=== PATIENT | female | born 1935 | race Caucasian/White ===

== ENCOUNTER 2018-10-27 23:03 | Emergency (ER) | payer OTHER, BC ==
[2018-10-27 23:30] VITALS: TEMP 98.2; BMI 27.3
--- NOTE | 2018-10-27 23:37 | PDOC ---
History of Present Illness - General Chief Complaint: Lightheaded Stated Complaint: DIZZINESS, ELEVATED BP Time Seen by Provider: 10/27/18 23:30 - History of Present Illness Initial Comments: 10/27/18 23:32 83 yo F with h/o HTN, HLD, COPD, pancreatitis, Anxiety, GERD, who p/w dizziness. Patient endorses acute onset of "spinning sensation," of room in right clockwise fashion beginning at 1000 M these evening. Onset of dizziness following bending over "picking clothes out of hot dryer machine." Patient states that spinning present at rest, worse with movement of head, and lasting for 30 minutes. Asx. w/ 2 episodes of NBNB emesis, 1 non bloody, non-mucoid BM. Denies h/o similar symptoms. Now with persistent epigastria discomfort, typical of patient prior GERD symptoms. Patient denies BALDERAS, vision change, palpitations, cough, wheezing, orthopnea, PND , leg swelling/pain, N/V, F,C, CP, SOB, urinary complaints, hematuria, BPR, abdominal pain, diarrhea, constipation, lightheadedness, weakness, sensory changes. PMHx: as noted above. Denies h/o ACS/NH, stent placement, CABG, TIA/CVA ROS: as noted SHx: Denies Allergies: NKDA Past History - Past Medical History Allergies/Adverse Reactions: Allergies Allergy/AdvReac Type Severity Reaction Status Date / Time No Known Drug Allergies Allergy Verified 10/27/18 23:30 Home Medications: Ambulatory Orders Zolpidem Tartrate [Ambien Cr] 12.5 mg PO HS 01/14/16 Amlodipine Besylate [Norvasc -] 10 mg PO DAILY #30 tablet 01/22/16 Alprazolam [Xanax] 0.5 mg PO HS 05/10/16 Atorvastatin Ca [Lipitor] 20 mg PO HS 05/10/16 Glucosa Huntley 2Kcl/Chondroitin Huntley [Glucosamine & Chondroitin Cap] 1 each PO BID 12/19 Vit A/Vit C/Vit E/Zinc/Copper [Preservision Areds Tablet] 1 each PO BID Wheat Dextrin [Benefiber] 1 pack PO BID 05/10/16 Biotin 10,000 mcg PO DAILY 06/12/16 Docusate Sodium [Colace -] 300 mg PO HS 06/12/16 Fluticasone Prop 0.05% Nasal [Flonase -] 1 - 2 spray NS DAILY 06/12/16 Acetaminophen [Tylenol .Regular Strength -] 1,000 mg PO Q4H PRN 06/23/16 Esomeprazole Magnesium [Nexium 24Hr] 20 mg PO DAILY 06/23/16 Ibuprofen [Advil -] 400 mg PO PRN PRN 06/23/16 Mag Carb/Aluminum Hydrox/Algin [Gaviscon Liquid] 355 ml PO PRN PRN 06/23/16 Polyethylene Glycol 3350 [Miralax 255 gm Btl] 17 gm PO DAILY #1 bottle 06/23/16 Anemia: Yes Asthma: No 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) CVA: No COPD: (LUNG MASS) CHF: No Dementia: No Diabetes: No GI Disorders: Yes (GERD) Disorders: No HTN: Yes Hypercholesterolemia: Yes Liver Disease: No Seizures: No Thyroid Disease: Yes (ABOUT 30YRS OLD) - Surgical History Abdominal Surgery: No Appendectomy: No Cardiac Surgery: No Cholecystectomy: Yes Lung Surgery: No Neurologic Surgery: No Orthopedic Surgery: Yes (CLAVICLE BONE LEFT) - Suicide/Smoking/Psychosocial Hx Smoking History: Never smoked Have you smoked in the past 12 months: No Number of Cigarettes Smoked Daily: 20 Cigars Per Day: 20 Information on smoking cessation initiated: No 'Breaking Loose' booklet given: 05/11/16 Hx Alcohol Use: No Drug/Substance Use Hx: No Substance Use Type: None Hx Substance Use Treatment: No Review of Systems - Review of Systems Comments:: 10/27/18 23:36 GENERAL/CONSTITUTIONAL: No fever or chills. No weakness. HEAD, EYES, EARS, NOSE AND THROAT: No change in vision. No ear pain or discharge. No sore throat. CARDIOVASCULAR: No chest pain or shortness of breath RESPIRATORY: No cough, wheezing, or hemoptysis. GASTROINTESTINAL: No nausea, vomiting, diarrhea or constipation. GENITOURINARY: No dysuria, frequency, or change in urination. MUSCULOSKELETAL: No joint or muscle swelling or pain. No neck or back pain. SKIN: No rash NEUROLOGIC: + Dizziness. No headache, vertigo, loss of consciousness, or change in strength/sensation. ENDOCRINE: No increased thirst. No abnormal weight change HEMATOLOGIC/LYMPHATIC: No anemia, easy bleeding, or history of blood clots. ALLERGIC/IMMUNOLOGIC: No hives or skin allergy. *Physical Exam - Vital Signs Last Vital Signs Temp Pulse Resp BP Pulse Ox 98.2 F 82 19 175/89 H 97 10/27/18 23:03 10/27/18 23:03 10/27/18 23:03 10/27/18 23:03 10/27/18 23:03 - Physical Exam Comments: 10/27/18 23:36 GENERAL: Awake, alert, and fully oriented, in no acute distress HEAD: No signs of trauma, normocephalic, atraumatic EYES: PERRLA, EOMI, sclera anicteric, conjunctiva clear ENT: Auricles normal inspection, hearing grossly normal, nares patent, oropharynx clear without exudates. Moist mucosa NECK: Normal ROM, supple, no lymphadenopathy, JVD, or masses LUNGS: No distress, speaks full sentences, clear to auscultation bilaterally HEART: Regular rate and rhythm, normal S1 and S2, no murmurs, rubs or gallops, peripheral pulses normal and equal bilaterally. ABDOMEN: Soft, nontender, normoactive bowel sounds. No guarding, no rebound. No masses EXTREMITIES : Normal inspection, Normal range of motion, no edema. No clubbing or cyanosis. NEUROLOGICAL: Absent nystagmus. Cranial nerves II through XII grossly intact. Normal speech, normal gait, no focal sensorimotor deficits SKIN: Warm, Dry, normal turgor, no rashes or lesions noted Moderate Sedation - Procedure Monitoring Vital Signs: Procedure Monitoring Vital Signs Temperature 98.2 F 10/27/18 23:03 Pulse Rate 82 10/27/18 23:03 Respiratory Rate 19 10/27/18 23:03 Blood Pressure 175/89 H 10/27/18 23:03 O2 Sat by Pulse Oximetry (%) 97 10/27/18 23:03 ED Treatment Course - LABORATORY CBC & Chemistry Diagram: 10/28/18 00:15 10/28/18 00:15 - ADDITIONAL ORDERS Additional order review: 10/28/18 01:55 Patient Information: : 1935 Order Type: Preliminary Name: MELISSA BALBUENA Sex: F Study Description: CT HEAD Modality: CT Location: [facility] Referring Physician: KENYA SCHILLING Comments: Norbert Garay MD wrote on Oct 28, 2018 at 01:28 AM: Referring Physician: KENYA SCHILLING Patient Name: ESHA TORRES THIS IS A PRELIMINARY REPORT FROM [facility] DATE OF SERVICE: 2018-10-28 01:07:25 IMAGES: 174 EXAM: HEAD CT WITHOUT CONTRAST HISTORY: Syncope COMPARISON: None. FINDINGS: Involutional changes. Chronic microvascular changes. No hemorrhage. No mass. No obvious infarct. Osseous structures are intact. CONFIDENTIALITY NOTICE: This information is intended only for the use of the recipient(s) named above. If you are not the intended recipient, or a person responsible for delivering it to the intended recipient, you are hereby notified that any disclosure, copying, distribution or use of any of the information contained in or attached to this transmission is STRICTLY PROHIBITED. If you have received this transmission in error, please immediately notify [facility] Director and destroy the original transmission and its attachments without saving them in any manner [address] [place] [address] [facility] [employer] [address] [place] [address] Phone: [phone] ([phone]) Fax: Email: [email or web address]: [email or web address] Patient Information: : 1935 Order Type: Preliminary Name: MELISSA BALBUENA Sex: F Study Description: CT HEAD Modality: CT Location: [facility] Referring Physician: KENYA SCHILLING Impression: Involutional and chronic microvascular changes. No other abnormalities are identified. One or more of the following dose reduction techniques were used: automated exposure control, adjustment of the mA and/or kV according to patient size, use of iterative reconstructive technique. THIS DOCUMENT HAS BEEN ELECTRONICALLY SIGNED Norbert Garay MD 10/28/2018 01:28 ANTHONY Guerra Please call [facility]isting Program Director [phone]) with questions. Norbert aGray MD Clinicians - Please contact [facility]isting Program Director with further questions at Medical Decision Making - Medical Decision Making 10/27/18 23:36 83 yo F with h/o HTN, HLD, COPD, pancreatitis, Anxiety, GERD, who p/w dizziness. BP 175/89, vitals otherwise wnl, AF, A&Ox3. Absent focal neuro deficits on physical exam. Will assess for VBI/TIA, cardiac dysarrythmias, hypoglycemia, electrolyte abnml, metabolic and toxic derangements, acid-base disturbances, infection. Denies ED Course: 10/28/18 01:43 Laboratory Tests 10/28/18 10/28/18 10/28/18 00:15 00:15 00:15 WBC 7.7 Hgb 12.2 Hct 35.5 Plt Count 353 BUN 25 H Creatinine 0.8 Troponin I < 0.02 CTH: Chronic microvascular changes. Stable for d/c with return precautions. 10/28/18 01:55 Discussed patient risk of central vertigo, patient expresses understanding and requests dispo home. 10/28/18 02:41 Pt. persistently HTN with BP 198/112. Patient refuses admission and expresses understanding of risk/benefit of signing AMA. *DC/Admit/Observation/Transfer Diagnosis at time of Disposition: Vertigo - Discharge Dispostion Disposition: AGAINST MEDICAL ADVICE - Referrals - Patient Instructions Printed Discharge Instructions: DI for Vertigo Additional Instructions: As discussed you may have undiagnosed illness or medical diagnosis that if left untreated can lead to multiple complications including, but not limited to permanent disability and . Should you reconsider you should turn to the emergency department for evaluation. Please return to the emergency department with any new or worsening symptoms or concerns. Please follow up with your primary care physician within 72 hours. - Post Discharge Activity - Attestations Physician Attestion: 10/27/18 23:36 I attest to the information provided in this note.
[2018-10-28] MEDS ORDERED: SODIUM CHLORIDE 1,000 ML IV STA (00:03)
[2018-10-28] MEDS ORDERED: FAMOTIDINE 20 MG/50 ML IVPB 20 MG/50 ML MG IVPB ONE ×2 (00:03→00:11)
[2018-10-28] MEDS ORDERED: ONDANSETRON 4 MG/2 ML VIAL IVPUSH ONE (00:03)
[2018-10-28] MEDS ORDERED: ONDANSETRON 4 MG/2 ML VIAL ONE (00:10)
[2018-10-28 00:53] LABS: INR 0.92 (0.83-1.09); PROTHROMBIN TIME (PATIENT) 10.8 SEC (9.7-13.0)
[2018-10-28 01:08] LABS: ALBUMIN 3.4 g/dl (3.4-5.0); ALK PHOS 159 U/L (45-117); ANION GAP 5 MMOL/L (8-16); BILIRUBIN,TOTAL 0.2 mg/dL (0.2-1); BLOOD UREA NITROGEN 25 mg/dL (7-18); CALCIUM 8.5 mg/dL (8.5-10.1); CHLORIDE 110 mmol/L (98-107); CO2 26 mmol/L (21-32); CREATININE 0.8 mg/dL (0.55-1.3); GLUCOSE,RANDOM 108 mg/dL (74-106); POTASSIUM 4.1 mmol/L (3.5-5.1); SGOT/AST 16 U/L (15-37); SGPT/ALT 14 U/L (13-61); SODIUM 141 mmol/L (136-145); TOT PROT 6.7 g/dl (6.4-8.2)
[2018-10-28 01:29] LABS: BASO % 1.1 % (0-2.0); EOS % 2.4 % (0-4.5); HEMATOCRIT 35.5 % (32.4-45.2); HEMOGLOBIN 12.2 GM/dL (10.7-15.3); LYMPH % 13.8 % (8-40); MCH 31.4 pg (25.7-33.7); MCHC 34.4 g/dl (32.0-36.0); MEAN CELL VOLUME 91.1 fl (80-96); MEAN PLT VOLUME 8.6 fl (7.5-11.1); MONO % 10.3 % (3.8-10.2); NEUT % 72.4 % (42.8-82.8); PLATELET COUNT 353 K/MM3 (134-434); RDW 15.5 % (11.6-15.6); WHITE BLOOD COUNT 7.7 K/mm3 (4.0-10.0)
--- NOTE | 2018-10-28 02:01 | PDOC ---
Attending Attestation - Resident Resident Name: Tate Cadena - ED Attending Attestation I have performed the following: I have examined & evaluated the patient, The case was reviewed & discussed with the resident, I agree w/resident's findings & plan, Exceptions are as noted - HPI HPI: 10/28/18 01:52 The patient is a 83 year old female, with a significant past medical history of HTN, HLD, COPD, pancreatitis, anxiety, and GERD, who presents to the emergency department with sudden onset room spinning dizziness. As per patient, she was taking socks out of the back of the dryer when she got up and began to feel the room was spinning "in big circles." She states the dryer is very low to the ground. Pt reports associated 1 episode of emesis, mild shortness of breath, and 1 bowel movement lasting a total of 20 minutes. SHe reports the dizziness would improve when she put her head down and recur when she looked up. She states the symptoms resolved on their own after about 20 mins. While in the ED, patient notes her symptoms have since resolved. Denies associated headache, focal weakness or numbness at any point. No hx similar sxs. She denies any alleviating factors. She denies any chest pain, palpitations, or vision changes. She denies recent fevers, chills, or headache. She denies recent dysuria, frequency, urgency or hematuria. Allergies: NKDA - Physicial Exam PE: 10/28/18 02:01 GENERAL: Awake, alert, and fully oriented, in no acute distress. Very comfortable appearing. EYES: PERRLA, EOMI, sclera anicteric, conjunctiva clear. No nystagmus. ENT: Auricles normal inspection, hearing grossly normal, nares patent, oropharynx clear without exudates. Moist mucosa NECK: Normal ROM, supple, no lymphadenopathy, JVD, or masses LUNGS: Breath sounds equal, clear to auscultation bilaterally. No wheezes, and no crackles HEART: Regular rate and rhythm, normal S1 and S2, no murmurs, rubs or gallops ABDOMEN: Soft, nontender, normoactive bowel sounds. No guarding, no rebound. No masses EXTREMITIES: Normal range of motion, no edema. No cords, erythema, or tenderness NEUROLOGICAL: Normal speech, cranial nerves intact, negative pronator drift, 5/ 5 strength in all 4 extremities, normal sensation to light touch in all 4 extremities, normal cerebellar exam, normal gait, normal tone SKIN: Warm, Dry, normal turgor, no rashes or lesions noted. - Medical Decision Making 10/28/18 02:19 83yo F hx HTN, HL presents to the ED with resolved vertigo. No associated headache, neuro deficits In ED, initial vitals with elevated bp, pt asymptomatic Given age, some risk factors, labs and CTH were obtained with no acute findings. Pt had no sxs during 3 hour stay here. Sxs most likely consistent with peripheral vertigo as they began after she stood up after leaning over in dryer, however we can not rule out central etiology w/o full stroke w/u In light of this, pt was offered observation for neuro w/u, MRI/MRA however she does not want to stay in the hospital and will leave AMA She expresses understanding that there is a possibility that this could be a stroke and states she will return immediately if any sxs recur The patient is clinically sober, free from distracting injury, appears to have intact insight and judgment and reason and in my opinion has the capacity to make decisions. The patient presents with vertigo. I have explained that I am concerned that this may represent a stroke; she has verbalized an understanding of my concerns. I have told the patient that while her CTH was normal, she could still have a stroke. I have discussed the need for MRI/MRI to get more information about potential causes of the patients vertigo. I have told the patient that if she leaves and has recurrent vertigo, she could get much worse, could become critically ill, and could possibly become disabled or . I have asked her to stay in the hospital for serial neuro exams. I have discussed these concerns with the patients daughter who is at the bedside and she is unable to convince her to stay for further evaluation. The patient is not willing to undergo an MRI/MRA. She is unwilling to stay overnight for monitoring. She is refusing any further care and is leaving against medical advice. I am unable to convince the patient to stay, I have asked her to return as soon as possible to complete their evaluation. I have answered all their questions.
[2018-10-28 02:29] VITALS: BP 198/112; PULSE 86
--- NOTE | 2018-10-28 10:10 | EKG ---
Test Reason : Blood Pressure : / mmHG Vent. Rate : 076 BPM Atrial Rate : 076 BPM P-R Int : 158 ms QRS Dur : 126 ms QT Int : 418 ms P-R-T Axes : 058 -47 017 degrees QTc Int : 470 ms NORMAL SINUS RHYTHM RIGHT BUNDLE BRANCH BLOCK LEFT ANTERIOR FASCICULAR BLOCK BIFASCICULAR BLOCK ABNORMAL ECG WHEN COMPARED WITH ECG OF 14-JAN-2016 12:26, NO SIGNIFICANT CHANGE WAS FOUND Confirmed by KRISTA WATSON MD ([id number]) on 10/28/2018 10:10:01 AM Referred By: Confirmed By:KRISTA WATSON MD
== END 2018-10-28 03:17 | disposition left against medical advice (07) ==
LOC: JER 23:03
PROC: 3E033GC Introduction of Other Therapeutic Substance into Peripheral Vein, Percutaneous Approach (ICD-10-PCS; principal; 2018-10-27)
PROC: 3E033GC Introduction of Other Therapeutic Substance into Peripheral Vein, Percutaneous Approach (ICD-10-PCS; 2018-10-27)
DX: I10 Essential (primary) hypertension (principal); H81.399 Other peripheral vertigo, unspecified ear; I25.10 Atherosclerotic heart disease of native coronary artery without angina pectoris; Z95.1 Presence of aortocoronary bypass graft; Z95.5 Presence of coronary angioplasty implant and graft; E78.5 Hyperlipidemia, unspecified; J44.9 Chronic obstructive pulmonary disease, unspecified; Z86.73 Personal history of transient ischemic attack (TIA), and cerebral infarction without residual deficits
CPT/HCPCS: 36415; 70450-TC; 80053; 82550; 84484; 85025; 85610; 93005; 93010; 96365; 96375; 99282-25; J7030

== ENCOUNTER 2019-02-12 11:42 | Day surgery (SDC) | payer OTHER, BC ==
[2019-02-11 16:01] VITALS: BMI 26.7
[~2019-02-12 11:42] MED LIST: ACETAMINOPHEN 325 MG TABLET (FP) PO PRN; BUPIVACAINE HCL/PF 0.75% 10 ML VIAL NR ONE; CYCLOPENTOLATE HCL 1% OPHTH SOLN 2 ML BOTTLE OP SCH; KETOROLAC TROMETHAMINE 0.5% EYE DROP 1 DROP DROPS OP SCH; OFLOXACIN 0.3% OPHTHALMIC SOLUTION 5 ML BOTTLE OP SCH; PHENYLEPHRINE 2.5% OPHTH SOLN 15 ML BOTTLE OP SCH; TROPICAMIDE 1% OPHTH SOLN 15 ML BOTTLE OP SCH
[2019-02-12] MEDS ORDERED: OFLOXACIN 0.3% OPHTHALMIC SOLUTION 5 ML BOTTLE ONE (11:54)
[2019-02-12] MEDS ORDERED: PHENYLEPHRINE 2.5% OPHTH SOLN 15 ML BOTTLE ONE (11:54)
[2019-02-12] MEDS ORDERED: CYCLOPENTOLATE HCL 1% OPHTH SOLN 2 ML BOTTLE ONE (11:54)
[2019-02-12] MEDS ORDERED: KETOROLAC TROMETHAMINE 0.5% EYE DROP 1 DROP DROPS ONE (11:55)
[2019-02-12] MEDS ORDERED: TROPICAMIDE 1% OPHTH SOLN 15 ML BOTTLE ONE (11:55)
[2019-02-12] MEDS ORDERED: KETOROLAC TROMETHAMINE 0.5% EYE DROP 1 DROP DROPS OD ONE ×3 (12:00→12:10)
[2019-02-12] MEDS ORDERED: PHENYLEPHRINE 2.5% OPHTH SOLN 15 ML BOTTLE OD ONE ×3 (12:00→12:10)
[2019-02-12] MEDS ORDERED: CYCLOPENTOLATE HCL 1% OPHTH SOLN 2 ML BOTTLE OD ONE ×3 (12:00→12:10)
[2019-02-12] MEDS ORDERED: OFLOXACIN 0.3% OPHTHALMIC SOLUTION 5 ML BOTTLE OD ONE ×3 (12:00→12:10)
[2019-02-12] MEDS ORDERED: TROPICAMIDE 1% OPHTH SOLN 15 ML BOTTLE OD ONE ×3 (12:00→12:10)
[2019-02-12] MEDS ORDERED: LIDOCAINE HCL/PF 2% SDV 5ML VIAL ONE (12:50)
[2019-02-12] MEDS ORDERED: PROPOFOL 20 ML ONE ×2 (13:13)
[2019-02-12] MEDS ORDERED: LIDOCAINE HCL/PF 2% SDV 5ML VIAL INF ONE (13:20)
[2019-02-12] MEDS ORDERED: POVIDONE-IODINE 5% OPHTHALMIC PREP 30 ML SOLUTION OD ONE (13:23)
[2019-02-12] MEDS ORDERED: BSS (NA/CA/MG/K) BALANCED SALT SOLUTION OPHTH SOLN 15 ML BOTTLE OD ONE (13:31)
[2019-02-12] MEDS ORDERED: CHONDROITIN SU A/HYALUR SOD 1 KIT IO ONE (13:31)
[2019-02-12] MEDS ORDERED: LIDOCAINE HCL 1% PRESERVATIVE FREE - 30ML VIAL IO ONE (13:31)
[2019-02-12] MEDS ORDERED: EPINEPHrine/PF 1 MG/1 ML (1:1,000) AMPULE SQ ONE (13:36)
[2019-02-12 14:49] VITALS: PULSE 76; TEMP 97.5
[2019-02-12 14:55] VITALS: BP 135/68
--- NOTE | 2019-02-12 19:33 | SPEC ---
DATE OF OPERATION: 02/12/2019 OPERATION: Phacoemulsification with posterior chamber intraocular lens implantation, right eye, lens used [id number], 22.0 Diopter power, Serial No. [id number]. PREOPERATIVE DIAGNOSIS: Cataract, right eye. POSTOPERATIVE DIAGNOSIS: Cataract, right eye. SURGEON: Michael Ortiz M.D. ANESTHESIA: Peribulbar/Modified Van Lint/MAC. COMPLICATIONS: None. PROCEDURE: The patient was brought to the operating room and correctly identified along with the operative site and a correct intraocular lens winkler. The patient was then given a peribulbar block under sedation with 5 mL of a 1:1 mixture of 2% Lidocaine and 0.5% Bupivacaine. Two to 3 mL of the same mixture was given as a modified Van Lint block. The eye was then prepped and draped in the usual sterile fashion including 5% Betadine solution in the conjunctival sac and an eyelid drape. An eyelid speculum was then placed into the eye. A paracentesis port was created. Viscoelastic was injected to inflate the anterior chamber. A temporal clear corneal wound was created. A continuous circular capsulorrhexis was performed. The nucleus was then hydro-dissected and removed phacoemulsification via the [id number] approach. The remaining cortical material was irrigated and aspirated from the eye. Viscoelastic was injected to inflate the capsular bag. The lens was injected into the capsular bag. Viscoelastic was then irrigated and aspirated from the eye. The intraocular lens was noted to be well centered and covered by the anterior capsular border. All wounds were found to be watertight. Topical Vancomycin was given. The eye patch and shield were placed. The patient was discharged from the operating room in stable condition. Mari ISRAEL/[id number]
== END 2019-02-12 14:50 | disposition home or self-care (01) ==
LOC: JASU-SURG 11:42
PROVIDERS: ATTEND Ophthalmology
PROC: 08RJ3JZ Replacement of Right Lens with Synthetic Substitute, Percutaneous Approach (ICD-10-PCS; principal; 2019-02-12 13:00)
DX: H26.9 Unspecified cataract (principal); I10 Essential (primary) hypertension; J44.9 Chronic obstructive pulmonary disease, unspecified; K21.9 Gastro-esophageal reflux disease without esophagitis

== ENCOUNTER 2019-05-07 09:55 | Day surgery (SDC) | payer OTHER, BC ==
[2019-05-05 15:46] VITALS: BMI 26.7
[~2019-05-07 09:55] MED LIST changes: -BUPIVACAINE HCL/PF 0.75% 10 ML VIAL NR ONE; +BUPIVACAINE HCL/PF 0.75% 10 ML VIAL RB ONE; -CYCLOPENTOLATE HCL 1% OPHTH SOLN 2 ML BOTTLE OP SCH; -KETOROLAC TROMETHAMINE 0.5% EYE DROP 1 DROP DROPS OP SCH; +LIDOCAINE HCL/PF 2% SDV 5ML VIAL PNB ONE; -OFLOXACIN 0.3% OPHTHALMIC SOLUTION 5 ML BOTTLE OP SCH; -PHENYLEPHRINE 2.5% OPHTH SOLN 15 ML BOTTLE OP SCH; -TROPICAMIDE 1% OPHTH SOLN 15 ML BOTTLE OP SCH
[2019-05-07] MEDS ORDERED: CYCLOPENTOLATE HCL 1% OPHTH SOLN 2 ML BOTTLE ONE (10:15)
[2019-05-07] MEDS ORDERED: KETOROLAC TROMETHAMINE 0.5% EYE DROP 1 DROP DROPS ONE (10:15)
[2019-05-07] MEDS ORDERED: PHENYLEPHRINE 2.5% OPHTH SOLN 15 ML BOTTLE ONE (10:15)
[2019-05-07] MEDS ORDERED: TROPICAMIDE 1% OPHTH SOLN 15 ML BOTTLE ONE (10:15)
[2019-05-07] MEDS ORDERED: OFLOXACIN 0.3% OPHTHALMIC SOLUTION 5 ML BOTTLE ONE (10:15)
[2019-05-07 10:34] VITALS: TEMP 97.9
[2019-05-07] MEDS: OFLOXACIN 0.3% OPHTHALMIC SOLUTION 5 ML BOTTLE OP SCH ×3 (10:35→10:45)
[2019-05-07] MEDS: CYCLOPENTOLATE HCL 1% OPHTH SOLN 2 ML BOTTLE OP SCH ×3 (10:35→10:45)
[2019-05-07] MEDS: TROPICAMIDE 1% OPHTH SOLN 15 ML BOTTLE OP SCH ×3 (10:35→10:45)
[2019-05-07] MEDS: KETOROLAC TROMETHAMINE 0.5% EYE DROP 1 DROP DROPS OP SCH ×3 (10:35→10:45)
[2019-05-07] MEDS: PHENYLEPHRINE 2.5% OPHTH SOLN 15 ML BOTTLE OP SCH ×3 (10:35→10:45)
[2019-05-07] MEDS ORDERED: PROPOFOL 20 ML ONE (11:06)
[2019-05-07] MEDS ORDERED: BUPIVACAINE HCL/PF 0.75% 10 ML VIAL RB ONE (11:11)
[2019-05-07] MEDS ORDERED: LIDOCAINE HCL/PF 2% SDV 5ML VIAL PNB ONE (11:11)
[2019-05-07] MEDS ORDERED: LIDOCAINE HCL/PF 2% SDV 5ML VIAL INF ONE (11:13)
[2019-05-07] MEDS ORDERED: BUPIVACAINE HCL/PF 0.75% 10 ML VIAL PNB ONE (11:13)
[2019-05-07] MEDS ORDERED: POVIDONE-IODINE 5% OPHTHALMIC PREP 30 ML SOLUTION OS ONE (11:16)
[2019-05-07] MEDS ORDERED: LIDOCAINE HCL 1% PRESERVATIVE FREE - 30ML VIAL IO ONE (11:18)
[2019-05-07] MEDS ORDERED: EPINEPHrine/PF 1 MG/1 ML (1:1,000) AMPULE SQ ONE (11:21)
[2019-05-07] MEDS ORDERED: CHONDROITIN SU A/HYALUR SOD 1 KIT ONE (13:12)
[2019-05-07 13:58] VITALS: BP 151/84; PULSE 75
--- NOTE | 2019-05-07 16:25 | SPEC ---
DATE OF OPERATION: DATE OF DICTATION: 05/07/2019 OPERATION: Phacoemulsification with posterior chamber intraocular lens implantation, left eye, lens used [id number], 21.0 diopter power, serial No. [id number]. PREOPERATIVE DIAGNOSIS: Cataract left eye. POSTOPERATIVE DIAGNOSIS: Cataract left eye. SURGEON: Michael Ortiz M.D. ANESTHESIA: Peribulbar/modified Van Lint/MAC. PROCEDURE: The patient was brought to the operating room and correctly identified along with the operative site and a correct intraocular lens winkler. The patient was then given a peribulbar block under sedation with 5 mL of a 1:1 mixture of 2% lidocaine and 0.5% bupivacaine. Two to 3 mL of the same mixture was given as a modified Van Lint block. The eye was then prepped and draped in the usual sterile fashion including 5% Betadine solution in the conjunctival sac and an eyelid drape. An eyelid speculum was then placed into the eye. A paracentesis port was created. Viscoelastic was injected to inflate the anterior chamber. A temporal clear corneal wound was created. A continuous circular capsulorrhexis was performed. The nucleus was then hydro-dissected and removed phacoemulsification via the [id number] approach. The remaining cortical material was irrigated and aspirated from the eye. Viscoelastic was injected to inflate the capsular bag. The lens was injected into the capsular bag. Viscoelastic was then irrigated and aspirated from the eye. The intraocular lens was noted to be well centered and covered by the anterior capsular border. All wounds were found to be watertight. Topical Vancomycin was given. The eye patch and shield were placed. The patient was discharged from the operating room in stable condition. Mari ISRAEL/[id number]
== END 2019-05-07 14:04 | disposition home or self-care (01) ==
LOC: JASU-SURG 09:55
PROVIDERS: ATTEND Ophthalmology
PROC: 08RK3JZ Replacement of Left Lens with Synthetic Substitute, Percutaneous Approach (ICD-10-PCS; principal; 2019-05-07 11:00)
DX: H26.9 Unspecified cataract (principal)